=== PATIENT | female | born 1995 | race Caucasian/White ===

== ENCOUNTER 2022-06-27 11:48 | Outpatient (CLI) | payer SELFPAY ==
[2022-06-27 18:09] VITALS: BP 128/73; PULSE 88; RESP 16; TEMP 98.1
== END 2022-06-27 14:47 | disposition home or self-care (01) ==
LOC: FBPOP 11:48
PROVIDERS: ATTEND Obstetrics & Gynecology
DX: O26.893 Other specified pregnancy related conditions, third trimester (principal); G89.11 Acute pain due to trauma; Z3A.36 36 weeks gestation of pregnancy; Z88.1 Allergy status to other antibiotic agents
CPT/HCPCS: 59025; 99213

== ENCOUNTER 2022-07-18 06:00 | Inpatient (IN) | payer OTHER ==
[2022-07-18] MEDS ORDERED: TERBUTALINE 1 MG/ML VIAL SQ PRN (06:41)
[2022-07-18] MEDS ORDERED: LIDOCAINE 0.5% (PF) 5 MG/ML (50 ML SDV) SQ PRN (06:41)
[2022-07-18 06:59] LABS: Basophils % (A) 0 %; Eosinophils # (A) 0.2 k/uL (0-0.7); Eosinophils % (A) 1 %; HCT 35.8 % (34.0-46.0); HGB 12.1 gm/dL (11.4-16.0); Lymphocytes # (A) 2.5 k/uL (1.0-4.8); Lymphocytes % (A) 24 %; MCH 29.5 pg (25.0-35.0); MCHC 33.7 g/dL (31.0-37.0); MCV 87.4 fL (80.0-100.0); Mean Platelet Volume 8.2; Monocytes # (A) 0.4 k/uL (0-1.0); Monocytes % (A) 4 %; Neutrophils # (A) 7.3 k/uL (1.3-7.7); Neutrophils % (A) 69 %; Platelet Count 333 k/uL (150-450); RDW 13.7 % (11.5-15.5); WBC 10.6 k/uL (3.8-10.6)
[2022-07-18] MEDS: AMPICILLIN 2,000 MG in SODIUM CHLORIDE 0.9% 100 ML IVPB STA ×2 (07:14→08:46)
[2022-07-18] MEDS: OXYTOCIN 30 UNITS/500 ML NS 30 UNIT in SALINE 1 500ML.BAG IV SCH ×2 (07:14→23:07)
[2022-07-18] MEDS ORDERED: PENICILLIN G POTASSIUM 5,000,000 UNIT in DEXTROSE 5% IN WATER 100 ML IVPB STA ×2 (07:24)
[2022-07-18] MEDS: LACTATED RINGERS 1,000 ML IV SCH ×2 (07:47→17:39)
[2022-07-18 09:49] LABS: Amphetamine Screen,Urine Not Detected (NotDetected); Barbiturate Screen,Urine Not Detected (NotDetected); Benzodiazepines Screen,Urine Not Detected (NotDetected); Cocaine Screen,Urine Not Detected (NotDetected); Methadone Screen, Urine Not Detected (NotDetected); Opiate Screen,Urine Not Detected (NotDetected); Oxycodone Screen, Urine Not Detected (NotDetected); Phencyclidine Screen,Urine Not Detected (NotDetected); Tricyclic Antidepressant,Urine Not Detected (NotDetected); Urn Cannabinoid Scrn Not Detected (NotDetected)
--- NOTE | 2022-07-18 10:10 | P.HPOB ---
History of Present Illness H&P Date: 07/18/22 Chief Complaint: Elective induction of labor Ms. Gibbons is a 27 year old at 39 weeks and 1 day with EDC 07/24/2022 of who presents to labor and delivery for elective induction of labor. Her has been complicated by obesity and smoking marijuana. Obstetric history: 1 FTVD without complications, weighed 7 pounds and 8 ounces. Last delivery 10 years ago. Labs: blood type O positive, antibody negative, rubella immune, VDRL non- reactive, HBsAG negative, HIV non-reactive, gonorrhea negative, chlamydia negative, 1 hour GTT 111, GBS positive. Past Medical History History of Any Multi-Drug Resistant Organisms: None Reported Past Anesthesia/Blood Transfusion Reactions: No Reported Reaction Past Psychological History: No Psychological Hx Reported Smoking Status: Vaper Medications and Allergies Home Medications Medication Instructions Recorded Confirmed Type Vit No.179/Iron/Folic 1 tab PO DAILY 06/27/22 07/18/22 History [ Tablet] Allergies Allergy/AdvReac Type Severity Reaction Status Date / Time clindamycin Allergy Vomiting Verified 06/27/22 12:45 Exam Vital Signs Temp Pulse Resp BP Pulse Ox 07/18/22 06:58 95.4 F L 95 16 125/67 98 Intake and Output 07/17/22 07/18/22 07/18/22 22:59 06:59 14:59 Other: Weight 148.778 kg Focused exam is performed. This is an obese-appearing, pleasant gravid woman in no apparent distress. Cervical exam shows 2 centimeters dilation, 50% effacement, and -2 station. Results Result Diagrams: 07/18/22 06:49 Assessment and Plan Assessment: 27 year old at 39 weeks and 1 day here for elective induction of labor Plan: - Admit, NPO, mIVF, oxytocin per protocol. GBS positive, PCN. Patient does not plan to get an epidural. Time with Patient: Less than 30
[2022-07-18] MEDS ORDERED: AMPICILLIN 1,000 MG in SODIUM CHLORIDE 0.9% 50 ML IVPB SCH (11:00)
[2022-07-18] MEDS: PENICILLIN G POTASSIUM 2,500,000 UNIT in DEXTROSE 5% IN WATER 100 ML IVPB SCH ×4 (11:33→15:31)
[2022-07-18] MEDS ORDERED: ACETAMINOPHEN TAB 325 MG TAB PO STA (13:20)
[2022-07-18] MEDS: BUTORPHANOL 1 MG/ML 1 ML VIAL IV PRN ×3 (13:57→18:24)
[2022-07-18] MEDS ORDERED: OXYTOCIN 10 UNIT/ML 1 ML VIAL IM ONE (20:08)
[2022-07-18] MEDS ORDERED: SIMETHICONE 80 MG CHEWABLE PO PRN (20:19)
[2022-07-18] MEDS ORDERED: diphenhydrAMINE 25 MG CAP PO PRN (20:19)
[2022-07-18] MEDS ORDERED: LANOLIN CREAM 5 GM TUBE TOPICAL PRN (20:19)
[2022-07-18] MEDS ORDERED: ZOLPIDEM 5 MG TAB PO PRN (20:19)
[2022-07-18] MEDS ORDERED: diphenhydrAMINE 50 MG/ML 1 ML VIAL IVP PRN ×2 (20:19)
[2022-07-18] MEDS ORDERED: HYDROCORTISONE 2.5% RECTAL CREAM 30 GM TUBE RECTAL PRN (20:19)
[2022-07-18] MEDS ORDERED: BENZOCAINE/MENTHOL SPRAY 1 GM/SPRAY AEROSOL TOPICAL PRN (20:19)
[2022-07-18] MEDS ORDERED: diphenhydrAMINE 50 MG CAP PO PRN (20:19)
[2022-07-18] MEDS ORDERED: OXYTOCIN 30 UNITS/500 ML NS 30 UNIT in SALINE 1 500ML.BAG IV SCH (20:30)
[2022-07-18] MEDS: IBUPROFEN 600 MG TAB PO PRN (20:45)
[2022-07-19] MEDS: PENICILLIN G POTASSIUM 2,500,000 UNIT in DEXTROSE 5% IN WATER 100 ML IVPB SCH ×2 (02:59)
[2022-07-19] MEDS: LACTATED RINGERS 1,000 ML IV SCH ×2 (02:59→04:32)
[2022-07-19] MEDS: ACETAMINOPHEN TAB 325 MG TAB PO PRN ×2 (03:08→23:09)
[2022-07-19 07:07] LABS: Basophils % (A) 0 %; Eosinophils # (A) 0.1 k/uL (0-0.7); Eosinophils % (A) 1 %; HCT 33.2 % (34.0-46.0); HGB 10.9 gm/dL (11.4-16.0); Lymphocytes # (A) 2.5 k/uL (1.0-4.8); Lymphocytes % (A) 18 %; MCH 29.5 pg (25.0-35.0); MCHC 32.9 g/dL (31.0-37.0); MCV 89.7 fL (80.0-100.0); Mean Platelet Volume 7.8; Monocytes # (A) 0.8 k/uL (0-1.0); Monocytes % (A) 5 %; Neutrophils # (A) 10.3 k/uL (1.3-7.7); Neutrophils % (A) 74 %; Platelet Count 338 k/uL (150-450); RDW 13.8 % (11.5-15.5)
--- NOTE | 2022-07-19 07:15 | P.PROBDLV ---
Vaginal Delivery Note - . Vaginal Delivery Note: DATE OF SERVICE: 07/18/2022 PROCEDURE: Normal Vaginal Delivery ATTENDING: Dr. Rabia Flores MD ESTIMATED BLOOD LOSS: 100 mL FINDINGS: VMI, Apgars 9/9, Weight 7 pounds and 11 ounces PROCEDURE: Patient was a 20 y/o who presented to labor and delivery for elective induction of labor at 39 weeks and 1 day. Cooks catheter was placed and oxytocin was started. After cooks catheter was removed, AROM was undertaken with clear fluid noted. The patient quickly progressed to complete. Head delivered without difficulty followed by shoulders and body over intact perineum. placed on maternal abdomen and bulb suctioned. Cord was clamped and cut after a 30 second delay. Placenta delivered whole with gentle cord traction. Oxytocin was started to facilitate uterine tone. Uterine fundus firm and bleeding minimal upon fundal massage. Perineal inspection revealed hemostatic bilateral periurethral abrasions that did not require repair and an intact perineum. Patient stable .
--- NOTE | 2022-07-19 08:01 | P.PNOBGVD ---
Subjective - Subjective Principal diagnosis: Normal vaginal delivery Interval history: Patient doing well, no acute events overnight. Voiding without difficulty, tolerating PO without nausea or vomiting, lochia is moderate, breast feeding going well. Denies chest pain, shortness of breath, fevers, chills, pain or swelling in legs. Patient reports: Reports appetite normal, Reports voiding normally, Reports pain well controlled, Reports ambulating normally [place]: doing well, nursing well Objective - Latest Vital Signs Latest vital signs: Vital Signs Temp Pulse Resp BP Pulse Ox 07/19/22 04:00 98.6 F 87 16 117/72 97 07/19/22 00:00 98.3 F 98 18 116/69 07/18/22 22:18 83 18 151/73 07/18/22 21:48 91 17 145/72 07/18/22 21:18 93 18 125/62 07/18/22 21:03 89 18 144/80 07/18/22 20:48 84 18 131/62 07/18/22 20:33 107 H 18 119/70 07/18/22 20:18 98.4 F 90 18 148/62 Intake and Output 07/18/22 07/19/22 07/19/22 22:59 06:59 14:59 Intake Total 31.767 Output Total 395 Balance -395 31.767 Intake: Intake, IV Titration 31.767 Amount Oxytocin 30 Units/500 ml 31.767 Ns 30 unit In Saline 1 500ml.bag @ Per Protocol IV .Q0M [facility] Rx#:[id number] Output: Output, Quantitative 395 Blood Loss Other: # Voids 1 0 - Exam Extremities: Present: normal Abdomen: Present: normal appearance, soft Uterus: Present: normal, firm - Labs Labs: Abnormal Lab Results - Last 24 Hours (Table) 07/19/22 Range/Units 06:46 WBC 14.0 H (3.8-10.6) k/uL RBC 3.70 L (3.80-5.40) m/uL Hgb 10.9 L (11.4-16.0) gm/dL Hct 33.2 L (34.0-46.0) % Neutrophils # 10.3 H (1.3-7.7) k/uL Assessment and Plan Assessment: 27 year old now PPD#1 s/p normal vaginal delivery Plan: 1. Meeting all milestones appropriately. 2. Viable male infant at bedside, doing well, nursing well. Consented for circumcision today. Will perform later today. 3. Contraception. Discussed 6 weeks of pelvic rest, will talk over contraceptive options in the office at 6 weeks visit Dispo: Discharge home today.
--- NOTE | 2022-07-19 08:09 | P.DS ---
Providers Date of admission: 07/18/22 06:13 Expected date of discharge: 07/19/22 Attending physician: Rabia Flores MD Primary care physician: Stated None Hospital Course: 27 year old who presented to L&D for elective induction of labor. Cooks catheter was placed and oxytocin was started. After cooks catheter was removed, AROM was undertaken for clear fluid. The patient quickly progressed to complete dilation. She pushed very effectively and had a liveborn male . She met all milestones appropriately and desires discharge home today on day 1. She will follow up in the office in 6 weeks for visit. She will be discharged home with Motrin and Tylenol as needed for pain. I discussed 6 weeks of pelvic rest and the patient understands. Circumcision will be performed prior to discharge this evening. Patient Condition at Discharge: Good Plan - Discharge Summary Discharge Rx Participant: No New Discharge Prescriptions: New Ibuprofen [Motrin] 600 mg PO Q8HR PRN #20 tab PRN Reason: Mild Pain (Scale 1 To 3) Acetaminophen Tab [Tylenol] 650 mg PO Q6H PRN #20 tab PRN Reason: Mild Pain (Scale 1 To 3) No Action Vit No.179/Iron/Folic [ Tablet] 1 tab PO DAILY Discharge Medication List Vit No.179/Iron/Folic [ Tablet] 1 tab PO DAILY 06/27/22 [History] Acetaminophen Tab [Tylenol] 650 mg PO Q6H PRN #20 tab 07/19/22 [Rx] Ibuprofen [Motrin] 600 mg PO Q8HR PRN #20 tab 07/19/22 [Rx] Follow up Appointment(s)/Referral(s): Rabia Flores MD [STAFF PHYSICIAN] - 6 Weeks Patient Instructions/Handouts: Your Baby (DC), Expression, Collection and Storage of Breast Milk (DC), How to Tell if Your Baby is Getting Enough Breast Milk (DC), How to Increase Your Milk Supply (DC), Vaginal Delivery (DC), Bleeding (DC), Caring for Your Baby (DC), Depression (DC) Activity/Diet/Wound Care/Special Instructions: Activity as tolerated. Pelvic rest for 6 weeks. Discharge Disposition: HOME SELF-CARE
[2022-07-19] MEDS: IBUPROFEN 600 MG TAB PO PRN ×2 (09:11→19:44)
[2022-07-19] MEDS: SENNOSIDES-DOCUSATE SODIUM 1 EACH TAB PO SCH ×2 (09:12→19:46)
[2022-07-20] MEDS: IBUPROFEN 600 MG TAB PO PRN (05:18)
[2022-07-20] MEDS: SENNOSIDES-DOCUSATE SODIUM 1 EACH TAB PO SCH (08:28)
[2022-07-20] MEDS: ACETAMINOPHEN TAB 325 MG TAB PO PRN (08:29)
[2022-07-20 17:10] VITALS: BP 113/76; PULSE 76; RESP 16; TEMP 98.2
== END 2022-07-20 16:35 | disposition home or self-care (01) | DRG 807 ==
LOC: 4FBP 06:13
PROVIDERS: ADMIT Obstetrics & Gynecology; ATTEND Obstetrics & Gynecology
PROC: 10907ZC Drainage of Amniotic Fluid, Therapeutic from Products of Conception, Via Natural or Artificial Opening (ICD-10-PCS; principal; 2022-07-19)
PROC: 10E0XZZ Delivery of Products of Conception, External Approach (ICD-10-PCS; principal; 2022-07-19)
PROC: 3E033VJ Introduction of Other Hormone into Peripheral Vein, Percutaneous Approach (ICD-10-PCS; principal; 2022-07-19)
PROC: 4A0HXCZ Measurement of Products of Conception, Cardiac Rate, External Approach (ICD-10-PCS; principal; 2022-07-19)
PROC: 0U7C7ZZ Dilation of Cervix, Via Natural or Artificial Opening (ICD-10-PCS; principal; 2022-07-19)
DX: O99.824 Streptococcus B carrier state complicating childbirth (principal); Z37.0 Single live birth; F17.210 Nicotine dependence, cigarettes, uncomplicated; O71.82 Other specified trauma to perineum and vulva; O99.214 Obesity complicating childbirth; E66.9 Obesity, unspecified; O99.334 Smoking (tobacco) complicating childbirth; Z3A.39 39 weeks gestation of pregnancy; Z88.1 Allergy status to other antibiotic agents
CPT/HCPCS: 80306; 85025; 86850; 86900; 86901

== ENCOUNTER 2022-07-23 14:17 | Emergency (ER) | payer OTHER ==
[2022-07-23 14:26] VITALS: BP 143/85; RESP 18; TEMP 98.7
--- NOTE | 2022-07-23 14:41 | ED ---
General Adult HPI - General Chief complaint: Chest Pain Stated complaint: chest pain, SOB Time Seen by Provider: 07/23/22 14:39 Source: patient Mode of arrival: wheelchair Limitations: no limitations - History of Present Illness Initial comments: Patient presents to the ED with her tawnya for evaluation. Patient states that she had a vaginal delivery 5 days ago, and she states that she has been experiencing exertional dyspnea, rapid heart palpitations and chest tightness since yesterday. Patient states that her symptoms are currently very mild. Scooter gallardo denies trauma or injury, fever or chills, headache, focal numbness/weakness/neuro deficit, neck/arm/jaw/back pain, pleuritic pain, cough or cold symptoms, dizziness, syncope, nausea/vomiting/diaphoresis, abdominal pain, diarrhea, bloody or melanotic stool, dysuria or urinary symptoms, decrease d urine output, leg or calf pain, or any other symptoms or complaints. - Related Data Home Medications Medication Instructions Recorded Confirmed No Known Home Medications 07/23/22 07/23/22 Allergies Allergy/AdvReac Type Severity Reaction Status Date / Time clindamycin AdvReac Vomiting Verified 07/23/22 15:42 Review of Systems ROS Statement: Those systems with pertinent positive or pertinent negative responses have been documented in the HPI. ROS Other: All systems not noted in ROS Statement are negative. Past Medical History Past Medical History: No Reported History History of Any Multi-Drug Resistant Organisms: None Reported Past Surgical History: No Surgical Hx Reported Past Anesthesia/Blood Transfusion Reactions: No Reported Reaction Past Psychological History: No Psychological Hx Reported Smoking Status: Vaper Past Alcohol Use History: Occasional Past Drug Use History: Marijuana General Exam Limitations: no limitations General appearance: alert, in no apparent distress Head exam: Present: atraumatic, normocephalic Eye exam: Present: normal appearance, EOMI ENT exam: Present: mucous membranes moist Neck exam: Present: other (Trachea is in midline) Respiratory exam: Present: normal lung sounds bilaterally. Absent: respiratory distress, wheezes, rales, rhonchi, stridor, chest wall tenderness Cardiovascular Exam: Present: regular rate, normal rhythm, normal heart sounds, other (Normal radial pulses bilaterally) GI/Abdominal exam: Present: soft, other (Obese abdomen). Absent: tenderness, guarding Extremities exam: Present: other (Negative Homans sign bilaterally). Absent: tenderness, pedal edema, calf tenderness Neurological exam: Present: alert, oriented X3. 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 Patient remains alert and breathing comfortably with a normal room air oxygen saturation. Patient and fianc are aware of the patient's test results, and patient was comfortable being discharged home at this time. Patient was counseled about chest pain, dyspnea and palpitations. Patient was made aware of the finding of a right ninth rib expansile lesion seen on CT, and she was advised to follow up closely with her primary care provider for further evaluation/follow-up. Patient was clearly explained return and follow-up instructions. Patient feels comfortable with this plan. EKG Findings - EKG Comments: EKG Findings:: ED physician interpretation: Normal sinus rhythm, ventricular rate of 89 bpm, no ectopy, normal WA and QRS intervals, normal QT interval, normal axis, no ST or T-wave abnormality Medical Decision Making - Medical Decision Making Patient's labs are fairly unremarkable. Patient's CT angiography chest is negative for pulmonary embolism. Patient's troponin is within normal limits. Patient's EKG is fairly unremarkable. I do not suspect an emergent medical condition at this time. Will discharge patient home with her fianc at this time. Patient feels comfortable with this plan. - Lab Data Result diagrams: 07/23/22 14:52 07/23/22 14:52 Lab Results 07/23/22 07/23/22 07/23/22 Range/Units 14:52 14:52 14:52 WBC 9.3 (3.8-10.6) k/uL RBC 3.50 L (3.80-5.40) m/uL Hgb 10.2 L (11.4-16.0) gm/dL Hct 31.2 L (34.0-46.0) % MCV 89.3 (80.0-100.0) fL MCH 29.2 (25.0-35.0) pg MCHC 32.7 (31.0-37.0) g/dL RDW 13.6 (11.5-15.5) % Plt Count 363 (150-450) k/uL MPV 7.6 Neutrophils % 68 % Lymphocytes % 23 % Monocytes % 4 % Eosinophils % 3 % Basophils % 1 % Neutrophils # 6.4 (1.3-7.7) k/uL Lymphocytes # 2.1 (1.0-4.8) k/uL Monocytes # 0.4 (0-1.0) k/uL Eosinophils # 0.3 (0-0.7) k/uL Basophils # 0.1 (0-0.2) k/uL PT 9.4 (9.0-12.0) sec INR 0.9 (<1.2) APTT 23.0 (22.0-30.0) sec D-Dimer 1.03 H (<0.60) mg/L FEU Sodium 138 (137-145) mmol/L Potassium 4.1 (3.5-5.1) mmol/L Chloride 109 H (98-107) mmol/L Carbon Dioxide 28 (22-30) mmol/L Anion Gap 1 mmol/L BUN 13 (7-17) mg/dL Creatinine 0.66 (0.52-1.04) mg/dL Est GFR (CKD-EPI)AfAm >90 (>60 ml/min/1.73 sqM) Est GFR (CKD-EPI)NonAf >90 (>60 ml/min/1.73 sqM) Glucose 86 (74-99) mg/dL Calcium 8.1 L (8.4-10.2) mg/dL Magnesium 1.9 (1.6-2.3) mg/dL Total Bilirubin 0.2 (0.2-1.3) mg/dL AST 19 (14-36) U/L ALT 19 (4-34) U/L Alkaline Phosphatase 90 (38-126) U/L Troponin I (0.000-0.034) ng/mL NT-Pro-B Natriuret Pep pg/mL Total Protein 5.6 L (6.3-8.2) g/dL Albumin 3.0 L (3.5-5.0) g/dL 07/23/22 07/23/22 Range/Units 14:52 14:52 WBC (3.8-10.6) k/uL RBC (3.80-5.40) m/uL Hgb (11.4-16.0) gm/dL Hct (34.0-46.0) % MCV (80.0-100.0) fL MCH (25.0-35.0) pg MCHC (31.0-37.0) g/dL RDW (11.5-15.5) % Plt Count (150-450) k/uL MPV Neutrophils % % Lymphocytes % % Monocytes % % Eosinophils % % Basophils % % Neutrophils # (1.3-7.7) k/uL Lymphocytes # (1.0-4.8) k/uL Monocytes # (0-1.0) k/uL Eosinophils # (0-0.7) k/uL Basophils # (0-0.2) k/uL PT (9.0-12.0) sec INR (<1.2) APTT (22.0-30.0) sec D-Dimer (<0.60) mg/L FEU Sodium (137-145) mmol/L Potassium (3.5-5.1) mmol/L Chloride (98-107) mmol/L Carbon Dioxide (22-30) mmol/L Anion Gap mmol/L BUN (7-17) mg/dL Creatinine (0.52-1.04) mg/dL Est GFR (CKD-EPI)AfAm (>60 ml/min/1.73 sqM) Est GFR (CKD-EPI)NonAf (>60 ml/min/1.73 sqM) Glucose (74-99) mg/dL Calcium (8.4-10.2) mg/dL Magnesium (1.6-2.3) mg/dL Total Bilirubin (0.2-1.3) mg/dL AST (14-36) U/L ALT (4-34) U/L Alkaline Phosphatase (38-126) U/L Troponin I <0.012 (0.000-0.034) ng/mL NT-Pro-B Natriuret Pep 100 pg/mL Total Protein (6.3-8.2) g/dL Albumin (3.5-5.0) g/dL - Radiology Data Chest x-ray: Normal chest. CT angiography chest with IV contrast: No evidence of pulmonary embolism. Expansile lesion right ninth rib is likely benign and could be fibrous dysplasia. Cholelithiasis. Disposition Clinical Impression: Chest pain, Dyspnea, Palpitations Disposition: HOME SELF-CARE Condition: Stable Instructions (If sedation given, give patient instructions): Chest Pain (ED), Heart Palpitations (ED), Dyspnea (ED) Additional Instructions: Return to the ER immediately should you develop new or worsening pain, increased shortness of breath, feeling dizzy or faint, a fever, or new or worsening symptoms. Follow up closely with your primary care provider. Is patient prescribed a controlled substance at d/c from ED?: No Referrals: None,Stated [Primary Care Provider] - 1-2 days Juan Caba DO [STAFF PHYSICIAN] - 1-2 days Time of Disposition: 17:17
[2022-07-23 14:56] VITALS: PULSE 76
[2022-07-23 15:16] LABS: Basophils # (A) 0.1 k/uL (0-0.2); Basophils % (A) 1 %; Eosinophils # (A) 0.3 k/uL (0-0.7); Eosinophils % (A) 3 %; HCT 31.2 % (34.0-46.0); HGB 10.2 gm/dL (11.4-16.0); Lymphocytes # (A) 2.1 k/uL (1.0-4.8); Lymphocytes % (A) 23 %; MCH 29.2 pg (25.0-35.0); MCHC 32.7 g/dL (31.0-37.0); MCV 89.3 fL (80.0-100.0); Mean Platelet Volume 7.6; Monocytes # (A) 0.4 k/uL (0-1.0); Monocytes % (A) 4 %; Neutrophils # (A) 6.4 k/uL (1.3-7.7); Neutrophils % (A) 68 %; Platelet Count 363 k/uL (150-450); RDW 13.6 % (11.5-15.5); WBC 9.3 k/uL (3.8-10.6)
[2022-07-23 15:30] LABS: INR 0.9 (<1.2); Prothrombin Time 9.4 sec (9.0-12.0)
[2022-07-23 15:40] LABS: ALT 19 U/L (4-34); AST 19 U/L (14-36); African American GFR (CKD) >90 (>60 ml/min/1.73 sqM); Alkaline Phosphatase 90 U/L (38-126); Anion Gap 1 mmol/L; Blood Urea Nitrogen 13 mg/dL (7-17); Calcium 8.1 mg/dL (8.4-10.2); Carbon Dioxide 28 mmol/L (22-30); Chloride 109 mmol/L (98-107); Glucose 86 mg/dL (74-99); Magnesium 1.9 mg/dL (1.6-2.3); Non-African American GFR(CKD) >90 (>60 ml/min/1.73 sqM); Potassium 4.1 mmol/L (3.5-5.1); Sodium 138 mmol/L (137-145); Total Bilirubin 0.2 mg/dL (0.2-1.3); Total Protein 5.6 g/dL (6.3-8.2)
--- NOTE | 2022-07-23 15:41 | XR ---
EXAMINATION TYPE: XR chest 2V DATE OF EXAM: 07/23/2022 COMPARISON: NONE HISTORY: Chest pain TECHNIQUE: 2 views FINDINGS: Heart is normal. Lungs are clear. Diaphragm is normal. Bony thorax appears normal. IMPRESSION: Normal chest.
--- NOTE | 2022-07-23 16:56 | CT ---
EXAMINATION TYPE: CT chest angio for PE DATE OF EXAM: 07/23/2022 COMPARISON: None HISTORY: pe CT DLP: 808 mGycm Automated exposure control for dose reduction was used. CONTRAST: Performed with IV Contrast, patient injected with 80 mL of Isovue 370. There are 3-D post processed images. The lungs are clear of infiltrate. No pleural effusion. No pericardial effusion. Heart size is normal . There is no mediastinal adenopathy. There are no hilar masses. Thoracic aorta is intact. No aneurys m. There is normal contrast opacification of the pulmonary arteries. No filling defect. There is expansile lesion involving the right posterior lateral ninth rib with soft tissue component and measures 9 cm in length. The thickness is 2.2 cm. There is marginal calcification. This is benign features and could be fibrous dysplasia. The thoracic spine is intact. No compression fracture. Ster num is intact. There are probably some calcified gallstones. IMPRESSION: No evidence of pulmonary embolism. Expansile lesion right ninth rib is likely benign and could be fibrous dysplasia. Cholelithiasis.
== END 2022-07-23 17:48 | disposition home or self-care (01) ==
LOC: EC 14:17
DX: O90.89 Other complications of the puerperium, not elsewhere classified (principal); R07.81 Pleurodynia; O99.335 Smoking (tobacco) complicating the puerperium; F17.200 Nicotine dependence, unspecified, uncomplicated; O99.325 Drug use complicating the puerperium; F12.90 Cannabis use, unspecified, uncomplicated
CPT/HCPCS: 99285; 36415; 85379; 83880; 80053; 83735; 84484; 85025; 85610; 85730; 71046; 71275; Q9967

== ENCOUNTER → 2024-01-24 | Outpatient (CLI) | payer OTHER | END | disposition home or self-care (01) | LOC: LABWHC1 14:58 | PROVIDERS: ATTEND Family Medicine | DX: L73.9 Follicular disorder, unspecified (principal) | CPT/HCPCS: 87040 ==

== ENCOUNTER → 2025-01-01 | Outpatient (CLI) | payer OTHER ==
--- NOTE | 2025-01-05 11:19 | MR ---
INDICATION: Patient age:Female; 29 years old; Reason for study: R22.2 CHEST MASS R07.9 CHEST PAIN; [facility]. COMPARISON: CTA chest 07/23/2022 TECHNIQUE: Multi planar, multi sequence imaging was obtained through the chest before and after the u neventful administration of 11 mL of Gadobutrol intravenously. FINDINGS: Redemonstration of expansile well-circumscribed right posterior lateral ninth rib lesion measuring gr ossly 2.6 x 10.2 x 3.8 cm. This demonstrates heterogenous T1 and T2 signal intensity. Demonstrates av id internal enhancement. Overall stable in size from prior CT. No external soft tissue component iden tified. Regions of cortical thinning identified. No invasion into the surrounding structures. No othe r suspicious osseous lesions. The lung parenchyma, mediastinum, and paraspinal regions included on the exam are grossly within norm al limits. Mild cardiomegaly. No pericardial effusion. No evidence of mediastinal adenopathy. Multiple gallstones identified filling the gallbladder lumen. No biliary duct dilatation visualized. IMPRESSION: Stable size of enhancing heterogenous expansile right posterior lateral ninth rib lesion from prior C T in 2021. No invasion into surrounding structures. Stability from 2021 suggests a benign lesion such as fibrous dysplasia versus other etiologies such as an enchondroma. [facility], , 01/05/2025 11:17 AM
== END | disposition home or self-care (01) ==
LOC: RADMRIMAIN 07:02
PROVIDERS: ATTEND Family Medicine
DX: R22.2 Localized swelling, mass and lump, trunk (principal); R07.9 Chest pain, unspecified
CPT/HCPCS: 71552; A9585